=== PATIENT | female | born 1995 | race Two or more races ===

== ENCOUNTER 2017-08-13 23:25 | Emergency (ER) | payer OTHER ==
[~2017-08-13] VITALS: Ht 162.6 cm; Wt 56.7 kg
[~2017-08-13 23:25] MED LIST: ACIDOPHILUS1 EAC3 PO; ZYRTEC10 MG PO
== END 2017-08-14 02:41 | disposition home or self-care (01) ==
LOC: ER 23:25
DX: J11.1 Influenza due to unidentified influenza virus with other respiratory manifestations (principal); B34.9 Viral infection, unspecified

== ENCOUNTER 2018-05-31 19:49 | Emergency (ER) | payer OTHER ==
[~2018-05-31] VITALS: Ht 162.6 cm; Wt 56.7 kg
== END 2018-05-31 21:52 | disposition home or self-care (01) ==
LOC: ER 19:49
DX: J11.1 Influenza due to unidentified influenza virus with other respiratory manifestations (principal)

== ENCOUNTER → 2021-01-26 | Emergency (ER) | payer OTHER ==
[~2021-01-26] VITALS: Ht 160 cm; Wt 60.3 kg
== END | disposition home or self-care (01) ==
LOC: ER 08:04
DX: N23 Unspecified renal colic (principal)

== ENCOUNTER 2021-09-03 18:55 | Emergency (ER) | payer OTHER ==
[~2021-09-03] VITALS: Ht 162.6 cm; Wt 57.2 kg
== END 2021-09-03 22:55 | disposition home or self-care (01) ==
LOC: ER 18:55
DX: U07.1 COVID-19 (principal)

== ENCOUNTER 2022-05-08 08:23 | Emergency (ER) | payer OTHER ==
[~2022-05-08] VITALS: Ht 160 cm; Wt 54.9 kg
== END 2022-05-08 11:39 | disposition home or self-care (01) ==
LOC: ER 08:23
DX: R10.11 Right upper quadrant pain (principal)